=== PATIENT | female | born 1940 | race Caucasian/White ===

== ENCOUNTER 2018-08-08 13:44 | Emergency (ER) | payer MEDICARE, OTHER ==
[~2018-08-08] VITALS: Ht 165.1 cm; Wt 107.0 kg
[~2018-08-08 13:44] MED LIST: ASA81 MG; Z.0.ENALAPRIL MALEA2 PO; Z.0.HYDROCHLOROTHIA2 PO; Z.0.METOPROLOL TART5 PO; Z.0.SIMVASTATIN80 MG
--- OUTSIDE RECORDS SUMMARY | 2018-08-08 13:47 | XMS REPORT | Clinical Summary ---
Author Author [facility] Address Unknown Phone Unavailable Care Team Providers Care Supervisor Safety Deposit Name Role Phone Felipe Smith MD PCP Unavailable Allergies Comments Active Allergy Reactions Severity Noted Date Amoxicillin Nausea And 12/04/2015 Vomiting Medications End Date Status Medication Sig Dispensed Refills Start Date Active aspirin 81 MG EC tablet Take 81 mg by 0 mouth daily. Active atorvastatin (LIPITOR) 40 Take 40 mg by 0 MG tablet mouth nightly . Active enalapril (VASOTEC) 20 MG Take 20 mg by 0 tablet mouth 2 (two) times daily . Active hydrochlorothiazide Take 25 mg by 0 (HYDRODIURIL) 25 MG mouth daily. tablet Active metoprolol (LOPRESSOR) 50 Take 50 mg by 0 MG tablet mouth 2 (two) times daily. Active DULoxetine (CYMBALTA) 60 Take 60 mg by 0 MG capsule mouth nightly. Active acetaminophen (TYLENOL) Take 500 mg 0 500 MG tablet by mouth every 6 (six) hours as needed for Pain. Active acetaminophen-codeine Take 1 tablet 0 (TYLENOL #3) 300-30 mg by mouth per tabletIndications: every 6 (six) Pain hours as needed for Pain. Active gabapentin (NEURONTIN) Take 100 mg 0 100 MG capsule by mouth 3 (three) times daily Pt. not sure of the dose . 04/20/2018 Discontinued halobetasol (ULTRAVATE) Apply 0 0.05 % cream topically 2 (two) times daily Apply to rash on elbows and knees morning and night for 4 weeks, then morning and night only on saturdays and sundays--avoi d face, armpits and groin. 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); Bony metastasis (HCC) 07/22/2018 Outside Orders Central Scheduling Maxim Tristan MD HERNIORRHAPHY,INCISIONAL 04/20/2018 Surgery Maxim Tristan MD 04/20/2018 Hospital Encounter Grabiel Cueva MD 04/19/2018 Anesthesia Event 03/21/2018 Hospital Pre-Admission Testing Encounter 03/16/2018 Hospital Pre-Admission Testing Encounter after 08/07/2017 Social History Date Tobacco Use Types Packs/Day Years Used Never Smoker Smokeless Tobacco: Never Used Alcohol Use Drinks/Week oz/Week Comments No Sex Assigned at Date Recorded Not on file Industry Job Start Date Occupation Not on file Not on file Not on file Travel End Travel History Travel Start No recent travel history available. Last Filed Vital Signs Time Taken Vital Sign Reading 07/26/2018 11:30 AM CDT Blood Pressure 105/68 07/26/2018 11:30 AM CDT Pulse 71 07/26/2018 10:15 AM CDT Temperature 36.9 C (98.4 F) 07/26/2018 11:30 AM CDT Respiratory Rate 16 07/26/2018 11:30 AM CDT Oxygen Saturation 96% - Inhaled Oxygen - Concentration 03/16/2018 8:51 AM CDT Weight 96.6 kg (213 lb) 03/16/2018 8:51 AM CDT Height 165.1 cm (5' 5") 03/16/2018 8:51 AM CDT Body Mass Index 35.45 Plan of Treatment Not on file Implants Device Identifier Shelf Expiration Date Model / Serial / Lot Implanted Type Area Manufactur er 11/07/2019 [id number] / / [id number] Ptc Vntrlx Erin Cir Med Strap Mesh N/A: Abdomen CR [id number] - [id number] BARD:BLAIR Implanted: Qty: 1 on 04/20/2018 by Maxim Tristan MD Procedures Comments Procedure Name Priority Date/Time Associated Diagnosis CT GUIDED BIOPSY ABDOMEN Routine 07/26/2018 Personal history of renal 10:07 AM CDT cancer 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 (HCC) TISSUE EXAM AP Routine 07/26/2018 10:03 AM CDT CREATININE STAT 07/26/2018 Personal history of renal 8:15 AM CDT cancer PLATELET COUNT STAT 07/26/2018 Personal history of renal 8:15 AM CDT cancer PT/APTT STAT 07/26/2018 Personal history of renal 8:15 AM CDT cancer HERNIORRHAPHY,INCISIONAL 04/20/2018 Incisional hernia without 10:30 AM CDT obstruction or gangrene after 08/07/2017 Results * CT biopsy abdomen (07/26/2018 10:07 AM CDT) Narrative Performed At FINAL REPORT [facility] CT-guided needle core biopsy of the L5 lytic lesion History: RENAL CANCER Comparison: PET/CT from [facility] Modality: CT, CT fluoroscopy Anesthesia: 1% lidocaine local Approach: Right dorsal percutaneous Consent: Informed written consent was obtained from the patient. Sedation: Moderate sedation was administered.1 mg of Versed and 50 mcg of fentanyl IV was used for moderate sedation monitored under my direction. Total intraservice time of sedation was 20 minutes. The patient's vital signs were monitored throughout the procedure and recorded in the patient's medical record by the nurse. Technique: The patient was placed prone in the CT scanner. A safe window to the lytic lesion in the right L5 vertebral body was localized using CT and CT fluoroscopy. This exam was performed according to our departmental dose optimization program which includes automated exposure control, adjustment of the mA and/or kV according to patient size and/or use of iterative reconstructive technique. After the usual sterile preparation and application of local anesthesia, using a right dorsal percutaneous approach, a 15 cm 18-gauge Temno biopsy needle was advanced into the L5 lytic lesion using CT guidance. 4 core biopsy samples were obtained and sent to pathology for further analysis. Disposition: The patient tolerated the procedure well, without immediate complications. The patient left CT in stable condition. Impression: 1. Technically successful CT guided needle core biopsy of the L5 lytic lesion Signed: Jarred Garvin MD Report Verified Date/Time:07/26/2018 10:17:41 Reading Location: [address] Ortho Consult Reading Room Procedure Note Interface, External Ris In - 07/26/2018 10:19 AM CDT FINAL REPORT CT-guided needle core biopsy of the L5 lytic lesion History: RENAL CANCER Comparison: PET/CT from [facility] Modality: CT, CT fluoroscopy Anesthesia: 1% lidocaine local Approach: Right dorsal percutaneous Consent: Informed written consent was obtained from the patient. Sedation: Moderate sedation was administered. 1 mg of Versed and 50 mcg of fentanyl IV was used for moderate sedation monitored under my direction. Total intraservice time of sedation was 20 minutes. The patient's vital signs were monitored throughout the procedure and recorded in the patient's medical record by the nurse. Technique: The patient was placed prone in the CT scanner. A safe window to the lytic lesion in the right L5 vertebral body was localized using CT and CT fluoroscopy. This exam was performed according to our departmental dose optimization program which includes automated exposure control, adjustment of the mA and/or kV according to patient size and/or use of iterative reconstructive technique. After the usual sterile preparation and application of local anesthesia, using a right dorsal percutaneous approach, a 15 cm 18-gauge Temno biopsy needle was advanced into the L5 lytic lesion using CT guidance. 4 core biopsy samples were obtained and sent to pathology for further analysis. Disposition: The patient tolerated the procedure well, without immediate complications. The patient left CT in stable condition. Impression: 1. Technically successful CT guided needle core biopsy of the L5 lytic lesion Signed: Jarred Garvin MD Report Verified Date/Time: 07/26/2018 10:17:41 Reading Location: [facility] [id number] Ortho Consult Reading Room Performing Organization Address City/State/Zipcode Phone Number RIS * Tissue Exam (07/26/2018 10:03 AM CDT) Case Report Surgical Pathology [facility] Report [facility] Case: [id number] Authorizing Provider:Rowan Miles MD Collected: 07/26/2018 1003 Ordering Location: [facility] Radiology Main Received: 07/26/2018 0082 Pathologist: Sheila Hilario MD Specimen:Lumbar, Lumbar 5 vertebral body DIAGNOSIS LUMBAR VERTEBRA, #5, CORE [facility] BIOPSY: [facility] - METASTATIC RENAL CELL CARCINOMA - (SEE MICROSCOPIC DESCRIPTION AND COMMENT SECTIONS) Signing Pathologist Direct Phone Line: [phone] COMMENT The malignant neoplasm shows [facility] large cells, with a "nested" [facility] pattern. Some of the cells show clear cytoplasm and others have little cytoplasm and large nuclei with prominent nucleoli. No history is given, originally. Additional history from this patient's chart review reveals this patient has a renal cell carcinoma of the left kidney (see report [id number]), from 04/23/2016, based upon an FNA of the left kidney. A biopsy of the left adrenal cortex region also shows features of renal cell carcinoma, confined to the adrenal gland in this sample from 05/25/2016 ([id number]). In light of these findings, the biopsy herein shows features consistent with renal cell carcinoma. A limited panel of immunohistochemical stains, including PAX-8 (as was performed in the previous samples), is performed to support this diagnosis. In this case, an additional renal cell marker immunohistochemical stain is also positive, CPT Code(s) MO/ew [facility] [address] [facility] 83467 x1; 15442 x1 CLINICAL HISTORY Previous diagnoses of renal [facility] cell carcinoma, from the left [facility] kidney (fine needle aspiration biopsy) and from the left adrenal gland, 2.5 x 2 x 2 cm, confined within the adrenal cortex. SPECIMEN SOURCE Lumbar 5 vertebral body [facility] GROSS DESCRIPTION The specimen is received in a [facility] formalin-filled container [facility] labeled with the patient's information and labeled "lumbar 5 vertebral body" and consists core biopsies ranging in length from 0.3 to 1 cm submitted entirely in A1. CG/ew MICROSCOPIC DESCRIPTION The L5 vertebral body sample [facility] shows multiple cores of [facility] tissue, a few of which are connective tissue in type and others that show a malignant neoplasm with cells of variable sizes, but some of which are quite large. The latter has large nucleoli and prominent nucleoli; other cells are medium sized and have more hyperchromatic nuclei. No definitive glandular elements are noted. There is some clear cytoplasm in some regions, and the neoplasm has a somewhat "nested" pattern. An occasional lymphoid aggregate is noted at the periphery of the tumor. No definitive bone is noted in this sample; this lesion may be (focally) periosseous. SPECIAL STUDIES The following special studies [facility] were performed on this case [facility] and the interpretation is incorporated in the diagnostic report above: see comment section. A PAX-8 stain is performed for support of the diagnosis, and this is positive. Dr. Hilario, recheck before sign out. The immunohistochemistry test was developed and its performance characteristics determined by [facility], Pathology Laboratory. It has not been cleared or approved by the U.S. Food and Drug Administration. The FDA has determined that such clearance or approval is not necessary. The test is used for clinical purposes. It should not be regarded as investigational or for research. This laboratory is certified under the Clinical Laboratory Improvement Amendments of 1988 (CLIA-88) as qualified to perform high complexity clinical laboratory testing. Specimen Tissue - Lumbar Performing Organization Address City/State/Zipcode Phone Number [facility] [address] [place] [address] [facility] * PT/aPTT (07/26/2018 8:15 AM CDT) Protime 13.2 11.7 - 14.7 seconds [facility] INR 1.0 <=5.9 [facility] PTT 26.0 22.5 - 36.0 seconds [facility] Specimen Blood Narrative Performed At RECOMMENDED COUMADIN/WARFARIN INR THERAPY RANGES [facility] STANDARD DOSE: 2.0 - 3.0 Includes: PROPHYLAXIS for venous thrombosis, [facility] systemic embolization; TREATMENT for venous thrombosis and/or pulmonary embolus. HIGH RISK: Target INR is 2.5-3.5 for patients with mechanical heart valves. Performing Organization Address City/State/Zipcode Phone Number [facility] [address] [place], [place] [id number] [facility] * Platelet count (07/26/2018 8:15 AM CDT) Platelets 241 150 - 450 K/CU MM [facility] Specimen Blood Performing Organization Address City/[facility]/Zipcode Phone Number [facility] [address] [place] [address] [facility] * Creatinine (07/26/2018 8:15 AM CDT) Creatinine 0.99 0.57 - 1.25 mg/dL [facility] EGFR 54Comment: ESTIMATED GFR IS mL/min/1.73 sq m [facility] NOT ACCURATE CREATININE [facility] CLEARANCE IN PREDICTING GLOMERULAR FILTRATION RATE. ESTIMATED GFR IS NOT APPLICABLE FOR DIALYSIS PATIENTS. Specimen Blood Performing Organization Address [facility] Cent[facility]ode Phone Number [place] [phone] [place], [place] [phone] [facility] after 08/07/2017 Insurance Payer Benefit Subscriber ID Type Phone Address Plan / Group [facility] xxxxxxxxxxx MEDICARE ADV Advance Directives Patient has advance care planning documents, and code status on file. For more i nformation, please contact: [address] [address] Date Inactivated Comments Code Status Date Activated 04/20/2018 3:52 PM Full Code 04/20/2018 9:50 AM This code status was determined by: Patient 05/27/2016 1:55 PM Full Code 05/25/2016 3:58 PM This code status was determined by: Patient
--- OUTSIDE RECORDS SUMMARY | 2018-08-08 13:47 | XMS REPORT ---
Author Author [facility] Address Unknown Phone Unavailable Care Team Providers Care Authorization Nurse Name Role Phone ROWAN MANLEY Unavailable Unavailable Problems This patient has no known problems. Allergies, Adverse Reactions, Alerts This patient has no known allergies or adverse reactions. Medications This patient has no known medications. Results Test Description Test Time Test Comments Text Results Atomic Results Result Comments TISSUE EXAM 2018-07-28 12:15:00 Surgical Pathology Report Case: [id number] Authorizing Provider: Rowan Manley MD Collected: 07/26/2018 1003 Ord ering Location: [facility] Radiology Main Received: 07/26/2018 1353 Pathologist: Sheila Hilario MD Specimen: Lumbar, Lumbar 5 vertebral body LUMBAR VERTEBRA, #5, CORE BIOPSY: - METASTATIC RENAL CELL CARCINOMA - (SEE MICROSCOPIC DESCRIPTION AND COMMENT SECTIONS) Signing Pathologist Direct Phone Line: [phone] signed by Sheila Hilario MD on 07/28/2018 at 12:15 PMThe malignant neoplasm shows large cells, with a "nested" pattern. Some of the cells show clear cytoplasm and others have little cytoplasm and large nuclei with prominent nucleoli. No history is given, originally. Additional history from this patient's chart review reveals this patient has a renal cell carcinoma of the left kidney (see report [id number]), from 04/23/2016, based upon an FNA of the left kidney. A biopsy of the left adrenal cortex region also shows features of renal cell carcinoma, confined to the adrenal gland in this sample from 05/25/2016 ([id number]). In light of these findings, the biopsy herein shows features consistent with renal cell carcinoma. A limited panel of immunohistochemical stains, including PAX-8 (as was performed in the previous samples), is performed to support this diagnosis.In this case, an additional renal cell marker immunohistochemical stain is also positive, DIYA/[id number] x1; 48978 x2Lryvbfkz diagnoses of renal cell carcinoma, from the left kidney (fine needle aspiration biopsy) and from the left adrenal gland, 2.5 x 2 x 2 cm, confined within the adrenal cortex.Lumbar 5 vertebral bodyThe specimen is received in a formalin-filled container labeled with the patient's information and labeled "lumbar 5 vertebral body" and consists core biopsies ranging in length from 0.3 to 1 cm submitted entirely in A1. CG/ew The L5 vertebral body sample shows multiple cores of tissue, a few of which are connective [...] this sample; this lesion may be (focally) periosseous.The following special studies were performed on this case and the interpretation is incorporated in the diagnostic report above: see comment section.A PAX-8 stain is performed for support of the diagnosis, and this is positive. Dr. Hilario, recheck before sign out. The immunohistochemistry test was developed and its performance characteristics determined by [facility], Pathology Laboratory. It has not been cleared [...] to perform high complexity clinical laboratory testing. CT, BIOPSY, ABDOMEN 2018-07-26 10:17:00 Reason for Exam:->RENAL CANCER FINAL REPORT CT-guided needle core biopsy of [...] the L5 lytic lesion Signed: Jarred Garvin MDReport Verified Date/Time: 07/26/2018 10:17:41 Reading Location: [address] Ortho Consult Reading Room TININE 2018-07-26 08:45:00 CREATININE (FARIHA) (test wxow=124) 0.99 mg/dL 0.57-1.25 EGFR (FARIHA) (test codu=[id number]) 54 mL/min/1.73 sq m ESTIMATED GFR IS NOT ACCURATE CREATININE CLEARANCE IN PREDICTING GLOMERULAR FILTRATION RATE. ESTIMATED GFR IS NOT APPLICABLE FOR DIALYSIS PATIENTS. PT/[id number] 08:36:00* Test Item Value Reference Range Comments PROTIME (TIMAKER) (test gcfl=679) 13.2 seconds 11.7-14.7 INR (BEAKER) (test ntdh=477) 1.0 <=5.9 PARTIAL THROMBOPLASTIN TIME (BEAKER) (test ezcw=004) 26.0 seconds 22.5-36.0 RECOMMENDED COUMADIN/WARFARIN INR THERAPY RANGESSTANDARD DOSE: 2.0 - 3.0 Inclu janny: PROPHYLAXIS for venous thrombosis, systemic embolization; TREATMENT for brooke ous thrombosis and/or pulmonary embolus.HIGH RISK: Target INR is 2.5-3.5 for pat ients with mechanical heart valves.PLATELET [id number] 08:25:00* Test Item Value Reference Range Comments PLATELET COUNT (BEAKER) (test mqwp=298) 241 K/CU MM 150-450
[2018-08-08] MEDS ORDERED: GABAPENTIN300 MG PO (14:24)
[2018-08-08] MEDS ORDERED: ATORVASTATIN CA20 MG PO (14:24)
[2018-08-08] MEDS ORDERED: DULOXETINE 60 MG PO (14:24)
== END 2018-08-08 14:30 | disposition home or self-care (01) ==
LOC: FSED 13:44
DX: R53.1 Weakness (principal); I95.2 Hypotension due to drugs; I10 Essential (primary) hypertension
CPT/HCPCS: 99283

== ENCOUNTER 2018-09-05 16:33 | Emergency (ER) | payer MEDICARE ==
[~2018-09-05] VITALS: Ht 165.1 cm; Wt 107.0 kg
[~2018-09-05 16:33] MED LIST changes: +ATORVASTATIN CA20 MG PO; +DULOXETINE 60 MG PO; +GABAPENTIN300 MG PO
--- OUTSIDE RECORDS SUMMARY | 2018-09-05 16:36 | XMS REPORT | Clinical Summary ---
Author Author ALE[facility] Address Unknown Phone Unavailable Care Team Providers Care Data Security Consultant Name Role Phone Felipe Smith MD PCP [...] Scheduling Maxim Tristan MD HERNIORRHAPHY,INCISIONAL [facility]/20[facility]2018 [facility]/20/2018 Anesthesia Event Maxim Tristan MD 04/20/2018 Hospital Encounter Resource, [facility] Preadmit Phone 03/21/2018 Hospital Pre-Admission Testing Encounter [facility] 03/16/2018 Hospital Pre-Admission Testing Encounter after 09/04/2017 Social History Date Tobacco Use Types Packs/Day [...] Lot Implanted Type Area Manufactur er 11/07/2019 [id number] / / [id number] [facility] Vntrlx [employer] [facility] Med Strap Mesh N/A: Abdomen CR [id number] - [id number] BARD:[id number] Implanted: Qty: 1 on 04/20/2018 by Maxim [...] 10:30 AM CDT obstruction or gangrene after 09/04/2017 Results * CT biopsy abdomen (07/26/2018 10:07 AM CDT) Narrative Performed At FINAL REPORT [employer] [facility] CT-guided needle core biopsy of the L5 lytic lesion History: RENAL CANCER Comparison: PET/CT from [facility] Modality: CT, CT fluoroscopy Anesthesia: 1% lidocaine [...] MD Report Verified Date/Time:07/26/2018 10:17:41 Reading Location: [facility] [id number] Ortho Consult Reading Room Procedure Note Interface, External Ris In - 07/26/2018 10:19 AM CDT FINAL REPORT CT-guided needle core biopsy of the L5 lytic lesion History: RENAL CANCER Comparison: PET/CT from [facility] Modality: CT, CT fluoroscopy Anesthesia: 1% lidocaine [...] Report Verified Date/Time: 07/26/2018 10:17:41 Reading Location: [facility] [id number] Ortho Consult Reading Room Performing Organization Address City/State/Zipcode Phone Number GE RIS * Tissue Exam (07/26/2018 10:03 AM CDT) Case Report Surgical Pathology [facility] Report [facility] Case: [id number] Authorizing Provider:Rowan Miles MD Collected: 07/26/2018 1003 Ordering Location: [facility] Radiology Main Received: 07/26/2018 7074 Pathologist: Sheila Hilario MD Specimen:Lumbar, Lumbar 5 vertebral body DIAGNOSIS LUMBAR VERTEBRA, #5, CORE [facility] BIOPSY: [facility] - METASTATIC RENAL CELL CARCINOMA - (SEE MICROSCOPIC DESCRIPTION AND COMMENT SECTIONS) Signing Pathologist Direct Phone Line: [phone] COMMENT The malignant neoplasm shows [facility] large cells, with a "nested" [facility] pattern. Some of the cells show clear cytoplasm and others have little cytoplasm and large nuclei with prominent nucleoli. No history is given, originally. Additional history from this patient's chart review reveals this patient has a renal cell carcinoma of the left kidney (see report [id number]), from 04/23/2016, based upon an FNA of the left kidney. A biopsy of the left adrenal cortex region also shows features of renal cell carcinoma, confined to the adrenal gland in this sample from 05/25/2016 ([id number]). In light of these findings, the biopsy herein shows features consistent with renal cell carcinoma. A limited panel of immunohistochemical stains, including PAX-8 (as was performed in the previous samples), is performed to support this diagnosis. In this case, an additional renal cell marker immunohistochemical stain is also positive, CPT Code(s) MO/ew [facility] [address] [facility] [address] x1; 64064 x1 CLINICAL HISTORY Previous diagnoses of renal [facility] cell carcinoma, from the left [facility] kidney (fine needle aspiration biopsy) and from the left adrenal gland, 2.5 x 2 x 2 cm, confined within the adrenal cortex. SPECIMEN SOURCE Lumbar 5 vertebral body [facility] [place] DESCRIPTION The specimen is received in a [facility] formalin-filled container [facility] labeled with the patient's information and labeled "lumbar 5 vertebral body" and consists core biopsies ranging in length from 0.3 to 1 cm submitted entirely in A1. CG/ew MICROSCOPIC DESCRIPTION The L5 vertebral body sample [facility] shows multiple cores of [facility] tissue, a few of which are connective [...] periosseous. SPECIAL STUDIES The following special studies [facility] were performed on this case [facility] and the interpretation is incorporated in the diagnostic report above: see comment section. A PAX-8 stain is performed for support of the diagnosis, and this is positive. Dr. Hilario, recheck before sign out. The immunohistochemistry test was developed and its performance characteristics determined by [facility], Pathology Laboratory. It has not been cleared [...] Lumbar Performing Organization Address City/State/Zipcode Phone Number [facility] [address] [place] [address] [facility] * PT/aPTT (07/26/2018 8:15 AM CDT) Protime 13.2 11.7 - 14.7 seconds [facility] INR 1.0 <=5.9 [facility] PTT 26.0 22.5 - 36.0 seconds [facility] Specimen Blood Narrative Performed At RECOMMENDED COUMADIN/WARFARIN INR THERAPY RANGES [facility] STANDARD DOSE: 2.0 - 3.0 Includes: PROPHYLAXIS for venous thrombosis, [facility] systemic embolization; TREATMENT for venous thrombosis and/or pulmonary embolus. HIGH RISK: Target INR is 2.5-3.5 for patients with mechanical heart valves. Performing Organization Address City/State/Zipcode Phone Number [facility] [address] [place] [phone] [facility] * Platelet count (07/26/2018 8:15 AM CDT) Platelets 241 150 - 450 K/CU MM [facility] Specimen Blood Performing Organization Address City/[facility] Phone Number [facility] [address] [place] [phone] [facility] * Creatinine (07/26/2018 8:15 AM CDT) Creatinine 0.99 0.57 - 1.25 mg/dL [facility] EGFR 54Comment: ESTIMATED GFR IS mL/min/1.73 sq m [facility] NOT ACCURATE CREATININE [facility] CLEARANCE IN PREDICTING GLOMERULAR FILTRATION RATE. ESTIMATED GFR IS NOT APPLICABLE FOR DIALYSIS PATIENTS. Specimen Blood Performing Organization Address [facility] Phone Number [address] [address] [facility] after 09/04/2017 Insurance Payer Benefit Subscriber ID Type Phone Address Plan / [facility] Advance Directives Patient has advance care planning documents, and code status on file. For more i nformation, please contact: [address] [address] Date Inactivated Comments Code Status Date Activated 04/20/2018 3:52 PM Full Code 04/20/2018 9:50 AM This code status was determined by: Patient 05/27/2016 1:55 PM Full Code 05/25/2016 3:58 PM This code status was determined by: Patient
--- NOTE | 2018-09-05 18:19 | Diagnostic Imaging Report ---
CT BRAIN WO-HOPD HISTORY: Headache, weakness in the legs; history of metastatic kidney cancer COMPARISON: None available at the time of dictation. TECHNIQUE: Noncontrast axial scans were obtained from skull base to the vertex. Coronal and sagittal reconstructions obtained from the axial data. One or more of the following dose reduction techniques were used: Automated exposure control, adjustment of the mA and/or kV according to patient size, and/or utilization of iterative reconstruction technique. DISCUSSION: Scalp/Skull: Unremarkable. Brain sulci: Overall appropriate for patient's age. Ventricles: Mild to moderate supratentorial ventriculomegaly is slightly out of proportion to sulcal prominence. There is mild bowing of the third ventricle. The occipital horn of the right lateral ventricle is effaced. Extra-axial spaces: No masses or fluid collections. Mild carotid siphon and vertebral artery calcifications are present. Parenchyma: Ill-defined subcortical hypodensity along the right lateral temporal-occipital convexity is associated with loss of godinez-white differentiation. Similar focal subcortical hypodensity is seen in the right middle temporal gyrus. There is associated local sulcal effacement throughout the right posterior temporal lobe, right occipital lobe, and right parietal lobe. There is no significant brain herniation. Mild periventricular white matter hypodensities are likely chronic microvascular ischemic changes. Otherwise, no definite acute hyperdense hemorrhage is seen. Dural sinuses: No abnormal densities. Sellar/Suprasellar region: Intact. Skull base: Intact. Incidental findings: Both ocular lenses are thinned. IMPRESSION: 1. Ill-defined juxtacortical hypodensity/mass along the right lateral temporal-occipital convexity with local brain swelling is suspicious for metastatic disease (with vasogenic edema) in the setting of renal cancer. Additional focal lesion in the right middle temporal gyrus is suspected. Evolving ischemia is thought to be less likely. There is no significant brain herniation. This was discussed with Dr. Elizondo at 1808 on 09/05/2018. 2. Mild to moderate supratentorial ventriculomegaly is slightly out of proportion to sulcal prominence. Correlate for communicating hydrocephalus. 3. Mild supratentorial chronic microvascular ischemic change. Signed by: Dr. Mukesh Otero M.D. on 09/05/2018 6:16 PM
[2018-09-05] MEDS ORDERED: ACETAMINOPHEN 325 MG TAB PO ONE (21:15)
== END 2018-09-05 21:45 | disposition other institution (70) ==
LOC: FSED 16:33
DX: R41.0 Disorientation, unspecified (principal); C79.31 Secondary malignant neoplasm of brain; C79.51 Secondary malignant neoplasm of bone; Z85.53 Personal history of malignant neoplasm of renal pelvis
CPT/HCPCS: 70450; 81003; 99284